=== PATIENT | female | born 1970 | race Caucasian/White ===

== ENCOUNTER 2019-08-19 10:20 | Emergency (ER) | payer MEDICAID ==
[~2019-08-19] VITALS: Ht 162.6 cm; Wt 70.3 kg
[2019-08-19 10:26] VITALS: BP 119/71; Ht 162.6 cm; Wt 70.3 kg
== END 2019-08-19 11:07 | disposition home or self-care (01) ==
LOC: ED 10:20
DX: S50.812A Abrasion of left forearm, initial encounter (principal); W54.0XXA Bitten by dog, initial encounter; Y93.89 Activity, other specified; Y92.89 Other specified places as the place of occurrence of the external cause; Y99.8 Other external cause status
CPT/HCPCS: 90715